=== PATIENT | female | born 1970 | race Caucasian/White ===

== ENCOUNTER 2017-07-22 06:01 | Observation (INO) | payer OTHER ==
--- NOTE | 2017-07-05 11:34 | GHP ---
[f rep st] PREOP HISTORY AND PHYSICAL DATE OF ADMISSION: 07/22/2017 PLANNED PROCEDURE: Total laparoscopic hysterectomy with bilateral salpingo-oophorectomy and cystosc opy. INDICATIONS: Patient is a 47-year-old, 5, para 3-0-2-3, who initially presented in May wit h complaints of right-sided pelvic pain and heavy bleeding and bloating. Patient has a remote histo ry of ovarian cysts years ago. She was started on control pills and did not have any other cy sts. She ultimately stopped control pills and has had intermittent ovarian cysts which necess itated going on control pills for several months to wait for the cysts to resolve. Patient no longer wants to be on control pills as she does not feel well on them. Patient also states t hat her cycles are now approximately 45 days apart but are getting substantially heavier. 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 She has cramping and urin jeyson frequency and does not feel like she can empty her bladder. Pelvic ultrasound shows her uterus measuring 9.6 x 3.9 x 4.8 cm with an endometrial thickness of 7 mm. She previously had an ovarian c yst seen which was not seen on our most recent ultrasound. No obvious polyps or fibroids were noted . We had a long discussion about management options including going back on control pills, Mi mari IUD, hysteroscopy with morcellation of endometrial tissue, and endometrial ablation, as well as hysterectomy. Patient is frustrated with all of these symptoms and would like to have definitive t herapy with a hysterectomy. We also had a discussion about removing both of her fallopian tubes for cancer reduction risk, and patient states that at this time because of her history of ovarian cysts and not wanting to have surgery in the future she would just like to have her ovaries out. She is aware that this will put her into menopause immediately. She is aware of that and is open to using hormone replacement if needed. PAST MEDICAL HISTORY: Torn labrum in right hip, menorrhagia, history of cervical dysplasia. MEDICATIONS: Multivitamin, fish oil, and probiotics. SURGICAL HISTORY: Voluntary termination of , cholecystectomy, tubal ligation, appendectomy , LEEP excision of cervix and cryosurgery. ALLERGIES: No known drug allergies. 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 She is . She denies tobacco or drug use. She does drink 5 alcoholic beverages a week. FAMILY MEDICAL HISTORY: Noncontributory. OBSTETRIC/GYNECOLOGIC HISTORY: Menarche at age 16. Periods are slightly irregular, somewhere betwe en 35 and 45 days, lasting 5 to 10 days. They are very heavy. She does have a lot of cramps and cl ots. Patient is a 5, para 3-0-2-3. In 1989, she had a voluntary termination of . In 1994, she had a spontaneous . In 1995, she had a spontaneous vaginal delivery. In 1996 , she had a spontaneous vaginal delivery. In 1999, she had a spontaneous vaginal delivery. She darden s have a history of abnormal Pap smears. She had cryosurgery in 1995 and a LEEP excision of her cer vix in 1997. Repeat Pap smears have all been negative. Her most recent Pap smear was 2 years ago. Pap and HPV testing were negative. She denies any history of any sexually transmitted diseases bes ides HPV. REVIEW OF SYSTEMS: A 10-point review of systems is negative with the exception of the above-mention ed pertinent positives including menorrhagia, dysmenorrhea, dyspareunia, and bloating and early sati ety. PHYSICAL EXAMINATION: VITAL SIGNS: The patient's weight is 157. Her blood pressure is 110/74. GE NERAL APPEARANCE: Alert and oriented x3. PSYCH: She has appropriate affect. NECK: Mobile and cid pple. CARDIAC: Her heart rate is regular/regular. PULMONARY: Her lungs are clear to auscultation bilaterally. ABDOMEN: Soft, nondistended, nontender. No organomegaly is noted. EXTREMITIES: No calf tenderness or edema. PELVIC: Reveals a mobile, midposition uterus with no adnexal masses. IMAGING: Pelvic ultrasound was described above. ASSESSMENT AND PLAN: A 47-year-old, 5, para 3-0-2-3, with menorrhagia and dyspareunia and r ecurrent ovarian cysts. Patient's most recent ultrasound showed no ovarian cysts. She would like t o proceed with a total laparoscopic hysterectomy with bilateral salpingo-oophorectomy. Risks and be nefits of the procedure have been extensively reviewed with patient including the possibility of nee ding to open, risks of bleeding, infection, damage to the bowel, bladder, or major blood vessels, an d risk of needing to perform additional surgeries. Patient has been properly consented. /[id number]/MODL
[2017-07-22] MEDS ORDERED: ceFAZolin 2 GM/DEXTROSE 100 ML IV ONE (06:10)
[2017-07-22] MEDS ORDERED: LIDOCAINE 1% 2 ML INJ ONE (06:15)
[2017-07-22] MEDS ORDERED: LR 1,000 ML IV ONE (06:34)
[2017-07-22] MEDS ORDERED: LIDOCAINE 1% 2 ML INJ ID PRN (06:34)
[2017-07-22] MEDS ORDERED: fentaNYL 100 MCG/2 ML INJ ONE ×2 (06:49→10:25)
[2017-07-22] MEDS ORDERED: LIDOCAINE 2% 5 ML SDV ONE (06:49)
[2017-07-22] MEDS ORDERED: PROPOFOL 200 MG/20 ML VIAL ONE (06:49)
[2017-07-22] MEDS ORDERED: ONDANSETRON 4 MG/2 ML VIAL ONE (06:50)
[2017-07-22] MEDS ORDERED: ROCURONIUM 50 MG/5 ML VIAL ONE ×2 (06:50→08:11)
[2017-07-22] MEDS ORDERED: DEXAMETHASONE 4 MG/ML VIAL ONE ×3 (06:50→08:12)
[2017-07-22] MEDS ORDERED: BUPIVACAINE 0.5% 30 ML SDV ONE (06:57)
--- NOTE | 2017-07-22 07:00 | PDANEPAE ---
ANE History of Present Illness 47 year old female presents for laparoscopic hysterectomy. ANE Past Medical History - Cardiovascular History Hx Hypertension: No Hx Arrhythmias: No Hx Chest Pain: No Hx Coronary Artery / Peripheral Vascular Disease: No Hx CHF / Valvular Disease: No Hx Palpitations: No - Pulmonary History Hx COPD: No Hx Asthma/Reactive Airway Disease: No Hx Recent Upper Respiratory Infection: No Hx Oxygen in Use at Home: No Hx Sleep Apnea: No Sleep Apnea Screening Result - Last Documented: Negative - Neurologic History Hx Cerebrovascular Accident: No Hx Seizures: No Hx Dementia: No - Endocrine History Hx Diabetes: No Hypothyroid: No Hyperthyroid: No Obesity: no - Renal History Hx Renal Disorders: No - Liver History Hx Hepatic Disorders: No Hepatic History Comment: GEOVANY - Neurological & Psychiatric Hx Hx Neurological and Psychiatric Disorders: No - Cancer History Hx Cancer: No - Congenital Disorder History Hx Congenital Disorders: No - GI History GERD: no Hx Gastrointestinal Disorders: No - Other Health History Other Health History: NEG - Chronic Pain History Chronic Pain: Yes (HIP PAIN R) - Surgical History Prior Surgeries: TUBAL. CHOLECYSTECTOMY. APPENDECTOMY. CORTISONE INJ R HIP ANE Review of Systems Review of systems is: negative - Exercise capacity Exercise capacity: >=4 METS METS (RN): 4 METS ANE Patient History - Allergies Allergies/Adverse Reactions: oxycodone Allergy (Verified 07/22/17 06:16) NAUSEA & VOMITING - Home Medications Home medications: home medication list seen and reviewed Home Medications: Flexeril 07/09/17 [Last Taken Unknown] Ibuprofen 07/09/17 [Last Taken Unknown] - NPO status NPO Status: no food or drink >8 hours NPO Since - Liquids (Date): 07/21/17 NPO Since - Liquids (Time): 21:00 NPO Since - Solids (Date): 07/21/17 NPO Since - Solids (Time): 19:00 - Smoking Hx Smoking Status: Never smoked - Alcohol Use Alcohol Use: Occasionally - Family Anes Hx Family Anes Hx: neg - N/A Family Hx Anesthesia Complications: NEG ANE Labs/Vital Signs - Vital Signs Vital Signs: reviewed preoperatively; see RN documention for details Blood Pressure: 150/94 Heart Rate: 74 Respiratory Rate: 16 O2 Sat (%): 96 Height: 162.56 cm Weight: 71.214 kg ANE Physical Exam - Airway Neck exam: FROM Mallampati Score: Class 2 Mouth exam: normal dental/mouth exam - Pulmonary Pulmonary: no respiratory distress - Cardiovascular Cardiovascular: regular rate and rhythym - ASA Status ASA Status: I ANE Anesthesia Plan Anesthesia Plan: general endotracheal anesthesia
[2017-07-22] MEDS ORDERED: MIDAZOLAM 2 MG/2 ML VIAL IVP ONE (07:10)
--- NOTE | 2017-07-22 07:20 | PDHPUP ---
History & Physical Update H&P update statement: This history and physical update is based on an assessment of the patient which was completed after admission or registration (within 24 hours), but prior to the surgery/procedure. H&P update: H&P reviewed & patient examined H&P changes: miguel a had an endometrial biopsy prior to procedure which showed late proliferative phase endometrium.
[2017-07-22] MEDS ORDERED: PROPOFOL/EMULSION 500 MG/50 ML BOTTLE IV ONE ×2 (07:23→08:46)
[2017-07-22] MEDS ORDERED: NALOXONE HCL 0.4 MG/ML INJ IVP PRN (08:25)
[2017-07-22] MEDS ORDERED: HYDROmorphONE/DILAUDID 1 MG/ML SYR IVP PRN (08:25)
[2017-07-22] MEDS ORDERED: ACETAMINOPHEN 500 MG TAB PO PRN (08:25)
[2017-07-22] MEDS ORDERED: MEPERIDINE 25 MG/ML SYR IVP PRN (08:25)
[2017-07-22] MEDS ORDERED: PROMETHAZINE HCL 25 MG/ML INJ IVP PRN (08:25)
[2017-07-22] MEDS ORDERED: ONDANSETRON 4 MG/2 ML VIAL IVP PRN ×2 (08:25→10:36)
[2017-07-22] MEDS ORDERED: HYDROmorphONE/DILAUDID 2 MG/ML INJ ONE (08:53)
[2017-07-22] MEDS ORDERED: SUGAMMADEX SODIUM 200 MG/2 ML VIAL IVP ONE (09:31)
[2017-07-22] MEDS ORDERED: KETOROLAC 30 MG/1 ML SDV ONE (09:48)
[2017-07-22] MEDS: fentaNYL 100 MCG/2 ML INJ IVP PRN ×3 (10:23→11:05)
[2017-07-22] MEDS ORDERED: MAGNESIUM HYDROXIDE 30 ML UDCUP PO PRN (10:36)
[2017-07-22] MEDS ORDERED: POLYETHYLENE GLYCOL 3350 17 GM PKT PO PRN (10:36)
[2017-07-22] MEDS ORDERED: BISACODYL 10 MG SUPP PR PRN (10:36)
[2017-07-22] MEDS ORDERED: LACTULOSE 20 GM/30 ML UDCUP PO PRN (10:36)
[2017-07-22] MEDS ORDERED: LR 1,000 ML IV SCH (11:00)
[2017-07-22] MEDS: KETOROLAC 30 MG/1 ML SDV IVP SCH ×3 (13:10→22:08)
--- NOTE | 2017-07-22 13:22 | POSTANESTH ---
Post Anesthetic Evaluation Cardiovascular Status: Normal, Stable Respiratory Status: Normal, Stable Level of Consciousness/Mental Status: Can Participate in Eval Pain Control: Adequate, Prn Tx Ordered Nausea/Vomiting Control: Adequate, Prn Tx Ordered Complications Possibly Related to Anesthesia: None Noted
[2017-07-22] MEDS: HYDROCODONE/APAP 5/325 TAB PO PRN ×2 (16:00→20:14)
--- NOTE | 2017-07-22 18:44 | SOAPPROG ---
SOAP Progress Note Assessment/Plan: Assessment: pod# 0 s/p TLH BSO uncomplicated post operative course Plan: routine post operative care shi removal 07/22/17 18:41 Subjective: patient is doing well. pain is well controlled except burning sensation in pelvis and constant sensation of needing to pee. tolerating diet. shi still in place. ambulating. Objective: Vital Signs Temp Pulse Resp BP Pulse Ox 37.2 C 76 18 121/79 H 91 L 07/22/17 14:40 07/22/17 14:40 07/22/17 14:40 07/22/17 14:40 07/22/17 14:40 07/21/17 07/22/17 07/23/17 05:59 05:59 05:59 Intake Total 900 Output Total 1050 Balance -150 Physical Exam - Physical Exam General Appearance: WD/WN, alert, no apparent distress Neck: non-tender, full range of motion Respiratory: chest non-tender, lungs clear, normal breath sounds Cardiac/Chest: normal peripheral pulses, regular rate, rhythm Abdomen: normal bowel sounds, non-tender, soft Skin: normal color, warm/dry Extremities: normal range of motion, non-tender, normal inspection, normal capillary refill Neuro/Psych: no motor/sensory deficits, alert, normal mood/affect, oriented x 3 ICD10 Worksheet Patient Problems: Problems Problem Status Onset Menorrhagia Acute Menorrhagia Acute
--- NOTE | 2017-07-22 19:54 | GOP ---
[f rep st] OPERATIVE REPORT DATE OF OPERATION: 07/22/2017 SURGEON: Kelly Lopez DO SPECIAL EVENTS MANAGER: Sarah Owen DO ANESTHESIA: General endotracheal tube. PREOPERATIVE DIAGNOSIS: Menorrhagia with ovarian cyst. POSTOPERATIVE DIAGNOSIS: Menorrhagia with ovarian cyst. PROCEDURE PERFORMED: Total laparoscopic hysterectomy with bilateral salpingo-oophorectomy. FINDINGS: 1. Exam under anesthesia: Mobile, midposition uterus with no adnexal masses. 2. Laparoscopic findings: Unremarkable ovaries, uterus and tubes. ESTIMATED BLOOD LOSS: 50 cc. INDICATIONS: Patient is a 47-year-old 5, para 3-0-2-3, who initially presented in May with complaint of right-sided pelvic pain and heavy bleeding and bloating. Patient had a remote history of ovarian cyst years ago. She has tried to manage these on control pills and patient no topher katina wants to be on control pills. The patient states her cycles are now 45 days apart, but ar e getting substantially heavier. They are averaging 6 super-plus pads a day on super heavy days plu s 4 additional days of heel curver periods. She has cramping and urinary frequency and does not feel li ke she can empty her bladder. An ultrasound was done showing a uterus measuring 9.6 x 3.9 x 4.8 cm with an endometrial thickness of 7 mm. No ovarian cysts were noted. Management options were extens ively reviewed with the patient. The patient is electing to proceed with a total laparoscopic hyste rectomy with bilateral salpingo-oophorectomy. She is aware that taking her ovaries and tubes out wi ll make her menopausal and she might need to go on hormone replacement for that. Patient is agreeab le. Risks and benefits have been extensively reviewed with the patient and patient has been properl y consented. DESCRIPTION OF PROCEDURE: Patient was taken to the operating room with intravenous fluids in place. She was then placed on the operating room table in the dorsal supine position where general anesth esia was obtained. She was given a scopolamine patch the day before because of history of postopera tive nausea. She was given 2 g of Ancef intravenously. She was then repositioned into the dorsal l ithotomy position with the Yellofin stirrups and prepped and draped in the normal sterile fashion. Exam under anesthesia revealed a mobile, midposition uterus with no adnexal masses. A speculum was then placed in the patient's vagina. A single-tooth tenaculum was used to grasp the anterior lip of the cervix. The cervix was then sounded to 9 cm and the cervix was then dilated to 7 cm. A ADRIANA w as assembled with an 8 cm tip and the large cup. It was inserted without difficulty and was able to easily mobilize the uterus. Gloves were changed. Attention was then turned to the patient's abdomen, where a 5 mm incision was then made in the umbil icus after injecting with Marcaine, and a 5 mm trocar was then advanced into the patient's abdomen u nder direct visualization. The abdomen was then insufflated with CO2 gas until an adequate pneumope ritoneum was achieved. The area underneath the trocar insertion site was found to be unremarkable. A 5 mm trocar was placed in the patient's right lower quadrant under direct visualization and a 10 mm trocar was advanced into the patient's abdomen under direct visualization. The abdomen and pelvi s were explored. The ovaries, uterus and tubes were overall unremarkable. The patient has status p ost bilateral salpingectomy. The left round ligament was then clamped, cauterized, and transected. The broad ligament was clampe d, cauterized, and transected. The uterine arteries were then skeletonized and clamped, cauterized, and transected, and a bladder flap was created anteriorly. The same procedure was performed on the contralateral side and the bladder flap was created anteriorly. There was some question about the location of the bladder, so the bladder was then backfilled and the bladder location was clearly del ineated and remote from the colpotomy site. The ADRIANA colpotomy ring was easily palpated and the Lig aSure hook was then used to perform the colpotomy. This was done without difficulty. The uterus an d cervix were then withdrawn into the vagina and withdrawn from the table and handed off as specimen and a sponge on a stick in a glove was then inserted into the vagina to maintain pneumoperitoneum. The bilateral salpingo-oophorectomy was then performed without difficulty remote from the ureter sit e. The bilateral ureters were noted to be peristalsing following the completion of the hysterectomy . The pelvis was then irrigated and cleared of all clots. A V-Loc suture was then used in a running f ashion to close the vaginal cuff. Hemostasis was achieved and again the ureters were evaluated and found to be peristalsing. The upper abdomen was explored and found to be unremarkable. The 10 mm t rocar was then withdrawn and the fascial closure device was then inserted. An 0 Vicryl stitch was u sed to close the fascia. CO2 gas was expressed from the patient's abdomen and the skin was closed w ith 4-0 Monocryl of all the trocar insertion sites. A speculum exam was then performed and the vagi nal cuff was noted to be intact and hemostatic. The patient was then returned to the dorsal supine position, where she was easily awoken from anesthesia. Sponge, lap, and needle count correct x2. T he patient was transferred to recovery room in stable condition. /[id number]/MODL
[2017-07-22] MEDS: SENNOSIDES/DOCUSATE SODIUM TAB PO SCH (20:16)
[2017-07-23] MEDS: HYDROCODONE/APAP 5/325 TAB PO PRN ×4 (00:16→10:23)
[2017-07-23] MEDS: KETOROLAC 30 MG/1 ML SDV IVP SCH (04:11)
[2017-07-23 04:44] LABS: HEMATOCRIT 32.9 % (38.0-47.0); HEMOGLOBIN 11.2 g/dL (12.6-16.3)
[2017-07-23] MEDS: SENNOSIDES/DOCUSATE SODIUM TAB PO SCH (08:36)
--- NOTE | 2017-07-23 08:40 | SOAPPROG ---
SOAP Progress Note Assessment/Plan: Assessment: pod# 1 s/p TLH BSO uncomplicated post operative course anemia Plan: routine post operative care discharge instructions iron 07/23/17 08:37 Subjective: patient is doing great! had significant pain with shi removal which may have been a bit low, but then pain has significantly decreased. still having cramping. ambulating. passing gas. no bowel movement yet. discussed anemia and starting iron. discussed bowel protocol. Objective: Vital Signs Temp Pulse Resp BP Pulse Ox 36.7 C 70 16 103/65 95 07/23/17 04:45 07/23/17 04:45 07/23/17 04:45 07/23/17 04:45 07/23/17 04:45 Laboratory Results 07/23/17 04:30 07/22/17 07/23/17 07/24/17 05:59 05:59 05:59 Intake Total 900 Output Total 1475 Balance -575 Physical Exam - Physical Exam General Appearance: WD/WN, alert, no apparent distress Neck: non-tender, full range of motion, supple Respiratory: chest non-tender, lungs clear, normal breath sounds Cardiac/Chest: normal peripheral pulses, regular rate, rhythm Abdomen: normal bowel sounds, non-tender, soft Skin: normal color, warm/dry, other (incisions clean dry and intact) Extremities: normal range of motion, non-tender, normal inspection, normal capillary refill Neuro/Psych: no motor/sensory deficits, alert, normal mood/affect, oriented x 3 ICD10 Worksheet Patient Problems: Problems Problem Status Onset Menorrhagia Acute Menorrhagia Acute
[2017-07-23 08:54] VITALS: BP 127/83; PULSE 80; RESP 14; TEMP 98.3; O2SAT 94
[2017-07-23] MEDS ORDERED: IRON POLYSAC/IRON HEME 28 MG TAB PO SCH (09:00)
--- NOTE | 2017-07-23 09:06 | GDS ---
[f rep st] DISCHARGE SUMMARY ADMISSION DIAGNOSES: 1. Menorrhagia. 2. Recurrent ovarian cyst. DISCHARGE DIAGNOSES: 1. Menorrhagia. 2. Recurrent ovarian cyst. 3. Status post total laparoscopic hysterectomy with bilateral salpingo-oophorectomy. HOSPITAL COURSE: The patient is a 47-year-old, who has a history of heavy periods and occasional ov palak cysts. She presented to our office for evaluation and management options were discussed. The patient ultimately decided to undergo a total laparoscopic hysterectomy with bilateral salpingo-oop horectomy. Risks and benefits extensively reviewed with the patient and the patient properly consen manuelito. Patient underwent the surgery on 07/22. Surgery was uncomplicated and the patient overall was having good pain management with the exception of significant bladder pressure, which resolved with removal of the Newman catheter. The patient is tolerating a regular diet, is passing gas and ambula ting and voiding without difficulty. She is having scant vaginal bleeding. The patient has not had a bowel movement, and is somewhat constipated and so she has been given senna and instructed to con tinue taking stool softeners or senna until she has regular bowel movements. The patient is going to be discharged to home today with instructions to follow up in the office in 2 and 6 weeks, to have nothing in the vagina for the next 9 weeks, to do no heavy lifting for the ne xt 6 weeks and to call if there is are any issues. She is given a prescription for [place] 5/325, 1-2 p.o. q.6 hours p.r.n. pain #30; ibuprofen 600 mg 1 p.o. q.6 hours p.r.n. pain #30, and instructed t o start taking iron supplements and stool softeners. Patient will follow up if there are any questi ons and otherwise as planned. /[id number]/MODL
[2017-07-23] MEDS ORDERED: IBUPROFEN 600 MG TAB PO SCH (10:41)
== END 2017-07-23 11:00 | disposition home or self-care (01) ==
LOC: FSGY 06:01 → F3E 10:36 → FOB 11:58
PROVIDERS: ADMIT Obstetrics & Gynecology; ATTEND Obstetrics & Gynecology
DX: N92.0 Excessive and frequent menstruation with regular cycle (principal); N83.201 Unspecified ovarian cyst, right side
CPT/HCPCS: 58571; G0378; J0690; J1100; J1170; J1885; J2250; J2405; J2704; J3010

== ENCOUNTER → 2018-07-22 | Outpatient (CLI) | payer OTHER | LOC: BMCIMAGING 15:14 | PROVIDERS: ATTEND Family Medicine | DX: Z12.31 Encounter for screening mammogram for malignant neoplasm of breast (principal) ==

== ENCOUNTER 2018-09-21 05:57 | Observation (INO) | payer OTHER ==
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
[2018-09-21] MEDS ORDERED: ACETAMINOPHEN 500 MG TAB PO ONE (06:06)
[2018-09-21] MEDS ORDERED: PREGABALIN 150 MG CAP PO ONE (06:06)
[2018-09-21] MEDS ORDERED: ceFAZolin 2 GM/DEXTROSE 100 ML IV ONE (06:06)
[2018-09-21] MEDS ORDERED: LIDOCAINE 1% 2 ML INJ ID PRN (06:07)
[2018-09-21] MEDS ORDERED: LR 1,000 ML IV ONE (06:07)
[2018-09-21] MEDS ORDERED: EPINEPHrine 1 MG/ML INJ ONE (06:48)
[2018-09-21] MEDS ORDERED: BUPIVACAINE 0.25% 30 ML SDV ONE (06:48)
[2018-09-21] MEDS ORDERED: MIDAZOLAM 2 MG/2 ML VIAL IVP ONE (07:02)
--- NOTE | 2018-09-21 07:02 | PDANEPAE ---
ANE History of Present Illness B hip arthroscopy ANE Past Medical History - Cardiovascular History Hx Hypertension: No Hx Arrhythmias: No Hx Chest Pain: No Hx Coronary Artery / Peripheral Vascular Disease: No Hx CHF / Valvular Disease: No Hx Palpitations: No - Pulmonary History Hx COPD: No Hx Asthma/Reactive Airway Disease: No Hx Recent Upper Respiratory Infection: No Hx Oxygen in Use at Home: No Hx Sleep Apnea: No Sleep Apnea Screening Result - Last Documented: Negative - Neurologic History Hx Cerebrovascular Accident: No Hx Seizures: No Hx Dementia: No - Endocrine History Hx Diabetes: No Obesity: mild - Renal History Hx Renal Disorders: No - Liver History Hx Hepatic Disorders: No Hepatic History Comment: GEOVANY - Neurological & Psychiatric Hx Hx Neurological and Psychiatric Disorders: No - Cancer History Hx Cancer: No - Congenital Disorder History Hx Congenital Disorders: No - GI History GERD: no Hx Gastrointestinal Disorders: No - Other Health History Other Health History: wears glasses/contact - Chronic Pain History Chronic Pain: Yes (HIP PAIN R) - Surgical History Prior Surgeries: right Labral repair, 01/2018. hysterectomy, 06/2017. TUBAL. CHOLECYSTECTOMY. APPENDECTOMY. CORTISONE INJ R HIP x 2. 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 09/16/18 [Last Taken 09/16/18] Estradiol 09/16/18 [Last Taken 09/21/18 04:00] Gas-X 09/16/18 [Last Taken 09/16/18] Probiotic 09/16/18 [Last Taken 09/16/18] Turmeric 09/16/18 [Last Taken 09/16/18] Vitamin B Complex 09/16/18 [Last Taken 09/16/18] - NPO status NPO Since - Liquids (Date): 09/21/18 NPO Since - Liquids (Time): 04:00 NPO Since - Solids (Date): 09/20/18 NPO Since - Solids (Time): 21:00 - Anes Hx Anes Hx: slow to awaken from anesthesia - Smoking Hx Smoking Status: Never smoked - Alcohol Use Alcohol Use: None - Family Anes Hx Family Anes Hx: none Family Hx Anesthesia Complications: none ANE Labs/Vital Signs - Vital Signs Blood Pressure: 145/80 Heart Rate: 72 Respiratory Rate: 15 O2 Sat (%): 94 Height: 163.83 cm Weight: 70.307 kg ANE Physical Exam - Airway Neck exam: FROM Mallampati Score: Class 3 Mouth exam: normal dental/mouth exam - Pulmonary Pulmonary: clear to auscultation - Cardiovascular Cardiovascular: regular rate and rhythym - ASA Status ASA Status: II (anxious about surgery.) ANE Anesthesia Plan Anesthesia Plan: general endotracheal anesthesia
[2018-09-21] MEDS ORDERED: ONDANSETRON 4 MG/2 ML VIAL IVP ONE (07:03)
[2018-09-21] MEDS ORDERED: DEXAMETHASONE 4 MG/ML VIAL IVP ONE (07:04)
[2018-09-21] MEDS ORDERED: ROCURONIUM 50 MG/5 ML VIAL ONE (07:11)
[2018-09-21] MEDS ORDERED: PROPOFOL/EMULSION 500 MG/50 ML BOTTLE IV ONE (07:11)
[2018-09-21] MEDS ORDERED: fentaNYL 250 MCG/5 ML INJ ONE (07:11)
[2018-09-21] MEDS ORDERED: DEXAMETHASONE 4 MG/ML VIAL ONE (07:12)
[2018-09-21] MEDS ORDERED: KETAMINE 200 MG/20 ML VIAL ONE (07:13)
[2018-09-21] MEDS ORDERED: MIDAZOLAM 2 MG/2 ML VIAL ONE (07:21)
[2018-09-21] MEDS ORDERED: ONDANSETRON 4 MG/2 ML VIAL ONE ×2 (08:05→10:24)
[2018-09-21] MEDS ORDERED: ePHEDrine SULFATE 25 MG/5 ML SYR ONE (08:28)
[2018-09-21] MEDS ORDERED: PROPOFOL 200 MG/20 ML VIAL ONE ×2 (08:29→09:01)
[2018-09-21] MEDS ORDERED: HYDROmorphONE/DILAUDID 2 MG/ML INJ ONE ×3 (08:39→11:40)
[2018-09-21] MEDS ORDERED: GLYCOPYRROLATE 0.2 MG/1 ML VIAL ONE (09:03)
[2018-09-21] MEDS ORDERED: NEOSTIGMINE METHYLSULFATE 5 MG/5 ML SYR ONE (09:03)
[2018-09-21] MEDS ORDERED: HYDROCODONE/APAP 5/325 TAB PO PRN (09:06)
[2018-09-21] MEDS ORDERED: ONDANSETRON 4 MG/2 ML VIAL IVP PRN ×2 (09:06→12:28)
[2018-09-21] MEDS ORDERED: NALOXONE HCL 0.4 MG/ML INJ IVP PRN (09:06)
[2018-09-21] MEDS ORDERED: fentaNYL 100 MCG/2 ML INJ ONE (09:58)
[2018-09-21] MEDS: fentaNYL 100 MCG/2 ML INJ IVP PRN ×3 (10:01→10:21)
[2018-09-21] MEDS: HYDROmorphONE/DILAUDID 2 MG/ML INJ IVP PRN ×6 (10:33→12:25)
[2018-09-21] MEDS ORDERED: DIAZEPAM 5 MG/ML 1 ML SYR ONE (11:10)
[2018-09-21] MEDS ORDERED: DIAZEPAM 5 MG/ML 1 ML SYR IVP ONE (11:30)
[2018-09-21] MEDS ORDERED: ACETAMINOPHEN 325 MG TAB PO PRN (12:28)
[2018-09-21] MEDS ORDERED: PROMETHAZINE HCL 25 MG/ML INJ IVP PRN (12:28)
[2018-09-21] MEDS ORDERED: ONDANSETRON DISINTEGRATING 4 MG TAB PO PRN (12:28)
[2018-09-21] MEDS ORDERED: HYDROmorphONE/DILAUDID 1 MG/ML INJ IVP PRN (12:28)
[2018-09-21] MEDS ORDERED: HYDROmorphONE/DILAUDID 2 MG TAB ONE (13:10)
[2018-09-21] MEDS: HYDROmorphONE/DILAUDID 2 MG TAB PO PRN ×4 (13:11→23:44)
[2018-09-21] MEDS: DIAZEPAM 2 MG TAB PO PRN ×3 (14:41→23:44)
[2018-09-21] MEDS ORDERED: PROMETHAZINE HCL 25 MG/ML INJ IV PRN (18:37)
[2018-09-21] MEDS ORDERED: LR 1,000 ML IV SCH (19:00)
[2018-09-22] MEDS: HYDROmorphONE/DILAUDID 2 MG TAB PO PRN ×4 (02:49→14:25)
--- NOTE | 2018-09-22 10:16 | ASMTLACE ---
LACE Length of stay for Answers: 2 days current admission Acuity / Level of Answers: No Care: Did the patient have an inpatient admission? Comorbidities - select Answers: Opioid dependence all that apply / Chronic pain # of Emergency department Answers: 0 visits in the last 6 months Score: 6 Date Signed: 09/22/2018 10:15 AM Electronically Signed By:KISHA Campbell
--- NOTE | 2018-09-22 10:16 | ASMTCMCOM ---
CM Note CM Note Notes: Pt in for post op pain, resides with spouse. PT rec home/outpatient. Pt medically stable for d/c, no CM d/c needs identified. Date Signed: 09/22/2018 10:16 AM Electronically Signed By:KISHA Campbell
[2018-09-22] MEDS: DIAZEPAM 2 MG TAB PO PRN (10:56)
[2018-09-22 16:27] VITALS: BP 105/68
--- NOTE | 2018-09-24 06:16 | GDS ---
Aury underwent bilateral core decompressions for bilateral avascular necroses on September 21, 2018. Postoperatively, her pain was not well controlled and she stayed overnight for pain management. She was well pain managed with IV and oral analgesia. She was up with Physical Therapy her first postoperative day and went home later that day in good condition. She will be full weightbearing with crutches for 6 weeks and will be following up in Dr. Peraza's clinic in 2 weeks' time. She was discharged in good condition. /[id number]/MODL MTDD
== END 2018-09-22 17:48 | disposition home or self-care (01) ==
LOC: FSGY 05:57 → F3E 12:44 → F3N 13:33
PROVIDERS: ADMIT Orthopaedic Surgery Sports Medicine; ATTEND Orthopaedic Surgery Sports Medicine
DX: M87.251 Osteonecrosis due to previous trauma, right femur (principal); M87.252 Osteonecrosis due to previous trauma, left femur
CPT/HCPCS: 0232T; 27299; 76001; 97116; 97161; 97165; 97535; G0378; C1713; J0171; J0690; J1100; J1170; J2250; J2405; J2550; J2704; J2710; J3010; J3360

== ENCOUNTER 2019-02-08 11:42 | Emergency (ER) | payer OTHER ==
--- NOTE | 2019-02-08 11:51 | EDPHY ---
H & P - Medical/Surgical History Hx Diabetes: No Hx Splenectomy or Spleen Trauma: No - Social History Smoking Status: Never smoked Time Seen by Provider: 02/08/19 11:44 Constitutional: Initial Vital Signs Heart Rate 89 02/08/19 11:51 Respiratory Rate 16 02/08/19 11:51 Blood Pressure 180/103 H 02/08/19 11:51 O2 Sat (%) 97 02/08/19 11:51 O2 Delivery Mode Room Air Allergies/Adverse Reactions: oxycodone Allergy (Verified 09/16/18 16:33) nausea & vomiting Home Medications: Medication Instructions Recorded EPINEPHrine [Epipen 0.3 MG] 02/08/19 Meclizine HCl [Meclizine HCl 25 mg 25 mg PO Q6H PRN #20 tab 02/08/19 (RX,OTC)] Xarelto 02/08/19 Medical Decision Making - Diagnostics Imaging: Discussed imaging studies w/ call circuit worker Radiologist, I viewed and interpreted images myself - Diagnostics Imaging Results: Imaging Impressions Head CT 02/08/19 11:43 Impression: No acute intracranial findings. Findings discussed with Hamzah Escalante MD 02/08/2019 at 12:54. Brain MRI 02/08/19 12:59 Impression: Normal MRI of the brain without contrast. Results called and discussed with Dr. Gorge Lewis at 02/08/2019 15:36. ED Course/Re-evaluation: CHIEF COMPLAINT: Hit head, on anticoagulants HISTORY OF PRESENT ILLNESS: The patient is an anticoagulated (Xarelto) 48 y/o female with a history of a PE complaining of a headache and feeling dizzy after hitting her head 9 days ago. The patient was standing up from bed when she tripped and hit her left forehead against her night table. She reports that she did not lose consciousness. After the injury she did not seek medical treatment as she was asymptomatic. On Friday , 3 days ago the patient developed a headache. Today she felt dizzy and nauseous in the morning and her boss noted that she wasn't acting normally. She went to see her PCP who noted that the patient had a BP of 170/100. Her PCP gave the patient 8mg PO Zofran and advised that she present to the emergency department for further imaging. No fever, body aches, lightheadedness, chest pain, heart palpitations, shortness of breath, cough, abdominal pain, urinary or bowel complaints, numbness, paresthesias. REVIEW OF SYSTEMS: A 10 point review of systems was performed and is negative with the exception of the elements mentioned in the history of present illness. PHYSICAL EXAM: HR, BP, O2 Sat, RR. Temp noted General Appearance: Nauseated, alert, well hydrated, appropriate, and non- toxic appearing. Head: Atraumatic without scalp tenderness or obvious injury Eyes: Pupils equal, round, reactive to light and accommodation, EOMI, no trauma , no injection. Ears: Clear bilaterally, no perforation, normal landmarks Nose: Atraumatic, no rhinorrhea, clear. Throat: Well-healing laceration on lip. There is no erythema or exudates, no lesions, normal tonsils, mucus membranes moist. Neck: Supple, 2+ carotid upstroke, nontender, no lymphadenopathy. Respiratory: No retractions, no distress, no wheezes, and no accessory muscle use. Lungs are clear to auscultation bilaterally. Cardiovascular: Regular rate and rhythm, no murmurs, rubs, or gallops. Bilateral carotid, radial, dorsalis pedis, and posterior tibial pulses intact. Good capillary refill all extremities. Gastrointestinal: Abdomen is soft, nontender, non-distended, no masses, no rebound, no guarding, no peritoneal signs. Musculoskeletal: Normal active ROM of all extremities, atraumatic. Neurological: Unstable gait with wide stance. Alert and interactive. The patient has normal DTRs and non-focal cranial nerves, sensory, and cerebellar exam. Skin: No rashes, good turgor, no nodules on palpation. 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 The differential diagnosis for the patient's dizziness included but was not limited to peripheral and central causes of vertigo, orthostatic causes including dehydration, cardiogenic and neurogenic causes, and blood loss. MEDICAL DECISION MAKING: The patient is an anticoagulated (Xarelto) 48 y/o female with a history of a PE complaining of a headache and feeling dizzy after hitting her head 9 days ago. The patient was asymptomatic after the fall until she developed a headache 3 days ago and dizziness associated with nausea this morning. She was given 8mg PO Zofran at her PCP and advised to present to the emergency department for further imaging. On exam she has an unstable gait with a wide-based stance, and appears dizzy and nauseated. Labs and head CT ordered; 12.5mg IV Phenergan administered. 1255: I spoke with Dr. Marks, radiologist, who reports that the patient has no acute findings. Her labs are also unremarkable. Patient may be having peripheral vertigo; have prescribed her Meclizine; her first dose will be given prior to discharge. 1258: Reassessed patient and discussed imaging and laboratory findings. Patient reports that her dizziness onset was slow and she feels like she just got off of a boat or roller coaster. Brain MRI ordered; patient is comfortable with this plan. 1440: Reassessed patient as she is back from MRI, the results are still pending. I have discussed with the patient that she is probably having benign peripheral vertigo. Patient and the patient are comfortable with this diagnosis. I have advised the patient to follow up with ENT for Alethea Maneuvers. 1500: Patient care turned over to Dr. Lewis at shift change; brain MRI still pending. (Hamzah Escalante) Other Provider: MRI reported as normal by Dr. Clemente at 3:34 p.m., patient informed and discharged as per previous plan by Dr. Escalante. Temperature noted at 36.9. Patient asked me if her medication Xarelto could cause her symptoms, I told her that it was possible although not likely. (Gorge Lewis) - Data Points Laboratory Results: Laboratory Results 02/08/19 11:52 02/08/19 11:52 02/08/19 02/08/19 02/08/19 11:54 11:52 11:52 WBC RBC Hgb POC Hgb 15.6 gm/dL gm/dL (12.6-16.3) Hct POC Hct 46 % % (38-47) MCV MCH MCHC RDW Plt Count MPV Neut % (Auto) Lymph % (Auto) [place] % (Auto) Eos % (Auto) Baso % (Auto) Nucleat RBC Rel Count Absolute Neuts (auto) Absolute Lymphs (auto) Absolute Monos (auto) Absolute Eos (auto) Absolute Basos (auto) Absolute Nucleated RBC Immature Gran % Immature Gran # PT 24.3 SEC H SEC (12.0-15.0) INR 2.32 H (0.83-1.16) APTT 36.8 SEC SEC (23.0-38.0) POC Sodium 140 mEq/L mEq/L (135-145) Sodium 138 mEq/L mEq/L (135-145) POC Potassium 4.0 mEq/L mEq/L (3.3-5.0) Potassium 4.3 mEq/L mEq/L (3.5-5.2) POC Chloride 102 mEq/L mEq/L (97-110) Chloride 102 mEq/L mEq/L (97-110) Carbon Dioxide 25 mEq/l mEq/l (22-31) POC Total CO2 26 mEq/L mEq/L (22-31) Anion Gap 11 mEq/L mEq/L (6-14) POC BUN 11 mg/dL mg/dL (7-23) BUN 13 mg/dL mg/dL (7-23) Creatinine 0.8 mg/dL mg/dL (0.6-1.0) POC Creatinine 0.7 mg/dL mg/dL (0.6-1.0) Estimated GFR > 60 Glucose 92 mg/dL mg/dL (70-100) POC Glucose 92 mg/dL mg/dL (70-100) Calcium 9.7 mg/dL mg/dL (8.5-10.4) 02/08/19 11:52 WBC 9.17 10^3/uL 10^3/uL (3.80-9.50) RBC 4.39 10^6/uL 10^6/uL (4.18-5.33) Hgb 14.9 g/dL g/dL (12.6-16.3) POC Hgb Hct 42.7 % % (38.0-47.0) POC Hct MCV 97.3 fL fL (81.5-99.8) MCH 33.9 pg pg (27.9-34.1) MCHC 34.9 g/dL g/dL (32.4-36.7) RDW 12.4 % % (11.5-15.2) Plt Count 331 10^3/uL 10^3/uL (150-400) MPV 9.6 fL fL (8.7-11.7) Neut % (Auto) 66.7 % % (39.3-74.2) Lymph % (Auto) 26.5 % % (15.0-45.0) [place] % (Auto) 5.2 % % (4.5-13.0) Eos % (Auto) 0.7 % % (0.6-7.6) Baso % (Auto) 0.5 % % (0.3-1.7) Nucleat RBC Rel Count 0.0 % % (0.0-0.2) Absolute Neuts (auto) 6.11 10^3/uL 10^3/uL (1.70-6.50) Absolute Lymphs (auto) 2.43 10^3/uL 10^3/uL (1.00-3.00) Absolute Monos (auto) 0.48 10^3/uL 10^3/uL (0.30-0.80) Absolute Eos (auto) 0.06 10^3/uL 10^3/uL (0.03-0.40) Absolute Basos (auto) 0.05 10^3/uL 10^3/uL (0.02-0.10) Absolute Nucleated RBC 0.00 10^3/uL 10^3/uL (0-0.01) Immature Gran % 0.4 % % (0.0-1.1) Immature Gran # 0.04 10^3/uL 10^3/uL (0.00-0.10) PT INR APTT POC Sodium Sodium POC Potassium Potassium POC Chloride Chloride Carbon Dioxide POC Total CO2 Anion Gap POC BUN BUN Creatinine POC Creatinine Estimated GFR Glucose POC Glucose Calcium Medications Given: Discontinued Medications Meclizine HCl (Meclizine Hcl) 25 mg PO EDNOW ONE Stop: 02/08/19 12:56 Last Admin: 02/08/19 13:11 Dose: 25 mg Promethazine HCl (Phenergan) 12.5 mg IVP EDNOW ONE Stop: 02/08/19 11:58 Last Admin: 02/08/19 11:58 Dose: 12.5 mg Point of Care Test Results: Chemistry 02/08/19 11:54 POC Sodium 140 mEq/L mEq/L (135-145) POC Potassium 4.0 mEq/L mEq/L (3.3-5.0) POC Chloride 102 mEq/L mEq/L (97-110) POC Total CO2 26 mEq/L mEq/L (22-31) POC BUN 11 mg/dL mg/dL (7-23) POC Creatinine 0.7 mg/dL mg/dL (0.6-1.0) POC Glucose 92 mg/dL mg/dL (70-100) ISTAT H&H 02/08/19 11:54 POC Hgb 15.6 gm/dL gm/dL (12.6-16.3) POC Hct 46 % % (38-47) Departure - Departure Disposition: Home, Routine, Self-Care Clinical Impression: Head injury Qualifiers: Encounter type: initial encounter Qualified Code(s): S09.90XA - Unspecified injury of head, initial encounter BPPV (benign paroxysmal positional vertigo) Qualifiers: Laterality: unspecified laterality Qualified Code(s): H81.10 - Benign paroxysmal vertigo, unspecified ear Condition: Good Instructions: Vertigo (ED), Head Injury (ED) Additional Instructions: 1. Follow up with ENT for Alethea maneuvers for vertigo. 2. Use meclizine as prescribed. 3. Drink plenty of fluids. 4. Return to the emergency department immediately for headache, numbness, weakness, severe vertigo, neck pain, inability to tolerate fluids by mouth or other worsening of condition. 5. If symptoms persist for more than 48 hours, followup with your primary care physician and/or a neurologist for further evaluation. Referrals: Gasergio,Anna, PAC [Physician Compress Engineer] - As per Instructions Prescriptions: Meclizine HCl [Meclizine HCl 25 mg (RX,OTC)] 25 mg PO Q6H PRN #20 tab PRN Reason: Dizziness Report Scribed for: Hamzah Escalante Report Scribed by: Salma López Date of Report: 02/08/19 Time of Report: 11:46
[2019-02-08] MEDS ORDERED: ONDANSETRON 4 MG/2 ML VIAL ONE (11:52)
[2019-02-08] MEDS ORDERED: PROMETHAZINE HCL 25 MG/ML INJ ONE (11:54)
[2019-02-08] MEDS ORDERED: PROMETHAZINE HCL 25 MG/ML INJ IVP ONE (11:57)
[2019-02-08 12:05] LABS: PLATELET COUNT 331 10^3/uL (150-400)
[2019-02-08 12:17] LABS: INR 2.32 (0.83-1.16); PROTIME(PATIENT) 24.3 SEC (12.0-15.0)
[2019-02-08] MEDS ORDERED: MECLIZINE HCL 25 MG TAB PO ONE (12:55)
[2019-02-08 15:17] VITALS: BP 118/68
== END 2019-02-08 15:45 | disposition home or self-care (01) ==
DX: S09.90XA Unspecified injury of head, initial encounter (principal); H81.10 Benign paroxysmal vertigo, unspecified ear; Z86.711 Personal history of pulmonary embolism; Z79.01 Long term (current) use of anticoagulants; W22.8XXA Striking against or struck by other objects, initial encounter; Y93.01 Activity, walking, marching and hiking; Y92.003 Bedroom of unspecified non-institutional (private) residence as the place of occurrence of the external cause
CPT/HCPCS: 70551-PN; 82435-PO; 82565-PO; 82947-PO; 84132-PO; 84295-PO; 84520-PO; 85014-ER; 96374; J2405; J2550